=== PATIENT | female | born 1940 | race Caucasian/White ===

== ENCOUNTER 2017-08-07 17:13 | Emergency (ER) | payer OTHER ==
[2017-08-07] MEDS: ACETAMINOPHEN 500 MG TAB PO (18:04)
[2017-08-07] MEDS: ALBUTEROL/IPRATROPIUM (NEB) 3 ML AMP HHN (18:15)
== END 2017-08-07 19:39 | disposition home or self-care (01) ==
LOC: FTE 17:13
DX: R05 Cough (principal); R06.02 Shortness of breath; R50.9 Fever, unspecified; J02.9 Acute pharyngitis, unspecified; R09.81 Nasal congestion; R51 Headache; J45.909 Unspecified asthma, uncomplicated; I25.10 Atherosclerotic heart disease of native coronary artery without angina pectoris; I50.9 Heart failure, unspecified; Z79.4 Long term (current) use of insulin
CPT/HCPCS: 94664; 99284-25

== ENCOUNTER 2018-05-18 09:34 | Emergency (ER) | payer OTHER ==
[2018-05-18] MEDS: IPRATROPIUM (NEB) 0.5 MG/2.5 ML AMP INH (10:50)
[2018-05-18] MEDS: ALBUTEROL 0.083% (NEB) 2.5 MG/3 ML AMP INH (10:50)
[2018-05-18] MEDS: DEXAMETHASONE 4 MG TAB PO (11:30)
== END 2018-05-18 12:00 | disposition home or self-care (01) ==
LOC: E/R 09:34
DX: R05 Cough (principal); J45.901 Unspecified asthma with (acute) exacerbation; E11.9 Type 2 diabetes mellitus without complications; R06.02 Shortness of breath; Z79.4 Long term (current) use of insulin
CPT/HCPCS: 71045; 87400; 93005; 94664; 99285-25